=== PATIENT | female | born 2000 | race Caucasian/White ===

== ENCOUNTER 2018-06-16 14:56 | Day surgery (SDC) | payer BC, OTHER ==
[2018-06-16 15:33] VITALS: BMI 26.7
--- NOTE | 2018-06-17 02:44 | SS ---
DATE OF ADMISSION: 06/16/2018 DATE OF DISCHARGE: 06/16/2018 REGULAR PHYSICIAN: Casa Nava DO, MS EVALUATING PHYSICIAN: Rao Rodriguez MD CHIEF COMPLAINT: Abdominal pain. HISTORY OF PRESENT ILLNESS: Ms. Ivey is a 18-year-old white G2, P0, AB1 with an estimated date of confinement of 09/02/2018, who presents complaining of intermittent cramping throughout the morning that she stated increased. She called Dr. Nava's office and was told to hydrate and rest at home. The patient states she became concerned about cramping and had a bowel movement just before she left for the hospital and she states that her symptoms are now completely resolved. She denies ruptured membranes or vaginal bleeding. Her care has been with Dr. Nava and has been without complications. PAST MEDICAL HISTORY: None. PAST SURGICAL HISTORY: D and C, tonsillectomy, and adenoidectomy. CURRENT MEDICATIONS: vitamins and folate. ALLERGIES: CEFADYL AND HYDROCODONE. SOCIAL HISTORY: Denies tobacco or alcohol use. She denies illicit drug use. FAMILY HISTORY: Unremarkable. REVIEW OF SYSTEMS: Denies nausea, vomiting, fever, chills, vaginal bleeding or ruptured membranes. PHYSICAL EXAMINATION: VITAL SIGNS: In triage, her vital signs are stable. She is afebrile. GENERAL: She is a pleasant young woman, in no acute distress, feeling much better now. ABDOMEN: Soft and nontender. There is no guarding or rebound. It is nondistended. HEART: heart rate tracing is reassuring. There are no decelerations. Spontaneous accelerations are seen. No uterine contractions are noted. ASSESSMENT: 1. 28 and 6/7th week intrauterine . 2. Suspect constipation, now resolved with bowel movement. PLAN: The patient will be discharged to home. Signs and symptoms of labor were discussed with her in detail. She was told should she have further abdominal pain, she should return for further evaluation. She understands her discharge instructions and sent home in good condition. Job ID: [id number]
== END 2018-06-16 16:20 | disposition home health service (06) ==
LOC: L&D/OP 14:56
PROVIDERS: ATTEND Obstetrics & Gynecology
DX: O99.89 Other specified diseases and conditions complicating pregnancy, childbirth and the puerperium (principal); R10.9 Unspecified abdominal pain; Z90.89 Acquired absence of other organs; Z88.1 Allergy status to other antibiotic agents; Z88.5 Allergy status to narcotic agent; Z98.890 Other specified postprocedural states
CPT/HCPCS: 99282

== ENCOUNTER 2018-08-12 15:50 | Day surgery (SDC) | payer BC, OTHER ==
[2018-08-12 16:54] VITALS: BMI 28.1
--- NOTE | 2018-08-13 07:56 | SS ---
DATE OF ADMISSION: 08/12/2018 DATE OF DISCHARGE: 08/12/2018 LABOR AND DELIVERY TRIAGE NOTE REGULAR PHYSICIAN: Casa Nava DO EVALUATING PHYSICIAN: Rao Rodriguez MD CHIEF COMPLAINT: Contractions at home. HISTORY OF PRESENT ILLNESS: Ms. Bradshaw is a 18-year-old, G2, P0, AB1 with an estimated date of confinement of 09/02/2018, who presents complaining of contractions since 11 this morning. She denies ruptured membranes or vaginal bleeding. Her care has been with Dr. Nava without complications. PAST OBSTETRICAL HISTORY: Includes a missed AB requiring D and C. PAST MEDICAL HISTORY: None. PAST SURGICAL HISTORY: Tonsillectomy and adenoidectomy as well as D and C noted above. CURRENT MEDICATIONS: vitamins. ALLERGIES: NO KNOWN ALLERGIES. SOCIAL HISTORY: Denies tobacco or alcohol use. FAMILY HISTORY: Unremarkable. REVIEW OF SYSTEMS: Denies nausea, vomiting, fever, chills, vaginal bleeding, or ruptured membranes. PHYSICAL EXAMINATION: VITAL SIGNS: In triage, her vital signs are stable and she is afebrile. GENERAL: She is pleasant, in no acute distress. ABDOMEN: Soft, nontender, and gravid. PELVIC: By the triage nurse shows the cervix to be 1 cm dilated, 70% effaced with the vertex at the -1. heart rate tracing is stable, only an occasional irregular contraction is seen. ASSESSMENT: 1. Thirty-seven week intrauterine . 2. No evidence of active labor at this time. PLAN: The nature of labor was discussed with the patient and her in detail. Her is a non-commissioned soldier at [employer], [place] and he is here on leave. She was told to return should she experience regular contractions, ruptured membranes, or vaginal bleeding. She voiced understanding of these labor precautions and was sent home in good condition. Job ID: [id number]
== END 2018-08-12 17:27 | disposition home health service (06) ==
LOC: L&D/OP 15:50
PROVIDERS: ATTEND Obstetrics & Gynecology
DX: O47.1 False labor at or after 37 completed weeks of gestation (principal); Z3A.37 37 weeks gestation of pregnancy; Z79.899 Other long term (current) drug therapy; Z88.1 Allergy status to other antibiotic agents; Z88.5 Allergy status to narcotic agent; Z91.040 Latex allergy status
CPT/HCPCS: 99282

== ENCOUNTER 2018-08-24 13:08 | Inpatient (IN) | payer BC, OTHER ==
[~2018-08-24 13:08] MED LIST: Bupivacaine 0.25% HCL 30 ML VIAL ONE; Sodium Chloride 0.9% (PF) 10 ML VIAL ONE
[2018-08-24 13:57] VITALS: BMI 28.5
[2018-08-24] MEDS ORDERED: Ibuprofen 800 MG TAB PO PRN (14:00)
[2018-08-24] MEDS ORDERED: Acetaminophen 500 MG TAB PO PRN (14:18)
[2018-08-24] MEDS ORDERED: NS / Oxytocin 40 units/1000ml 1,000 ML IV PRN (14:18)
[2018-08-24] MEDS ORDERED: Promethazine HCl 25 MG/ML VIAL IM PRN ×2 (14:18→18:29)
[2018-08-24] MEDS ORDERED: Lidocaine 1% (PF) 30 ML VIAL SC PRN (14:18)
[2018-08-24] MEDS ORDERED: Ondansetron PF 4 MG/2 ML Vial IVP PRN ×2 (14:18→18:29)
--- NOTE | 2018-08-24 14:27 | PDOC.LDHP ---
Labor and Delivery H&P Chief complaint: loss of fluid HPI: Pt is a 18yo who reports LOF last night and presents to L and D. GBS negative. Good FM. Rare ctx. Current gestational age (weeks): 38 Due date: 09/03/18 Dating criteria: first trimester ultrasound Grav: 2 Para: 0 OB History Details: transfer of care at 25 weeks Current complications: none Abnormal US findings: No Past Medical History: none Current medications: pre- vitamins Previous surgical history: dilation and curettage Allergies/Adverse Reactions: Allergies Allergy/AdvReac Type Severity Reaction Status Date / Time cefprozil Allergy Verified 08/24/18 13:53 hydrocodone Allergy Verified 08/24/18 13:53 latex Allergy Verified 08/24/18 13:53 Social history: none - Physical Exam Vital signs reviewed and normal: yes General: NAD Lungs: nonlabored breathing Abdomen: gravid Extremeties: no edema FHT: category 1 - Vaginal Exam cm dilated: 1 - OB Labs Blood type: O RH: positive Antibody Screen: negative HIV: negative RPR: negative HEPSAg: negative 1 hour GCT: negative (112) Rubella: immune - Assessment L&D Assessment: term rupture in membranes - Plan Plan: admit to L&D, cervical ripening, labor augmentation if indicated, informed consent obtained, anesthesia consult for pain management -: A/P: Term PROM @ 38+ weeks. Plan for cytotec for IOL, FHT reassuring.
[2018-08-24] MEDS ORDERED: Misoprostol 100 MCG TAB PO SCH (14:30)
[2018-08-24] MEDS ORDERED: NS w/ Oxytocin 10 units 500 ML IV SCH ×2 (14:30)
[2018-08-24] MEDS ORDERED: Butorphanol Tartrate 1 MG/ML VIAL ONE (15:58)
[2018-08-24] MEDS: Butorphanol Tartrate 1 MG/ML VIAL SLOW IVP PRN ×2 (16:00→17:51)
[2018-08-24 16:03] LABS: Hemoglobin 12.7 g/dL (12.0-16.0); Mean Corpuscular HGB CONC 34.6 g/dL (32.0-36.0); Mean Corpuscular Hemoglobin 32.4 pg (25.0-35.0); Mean Corpuscular Volume 93.7 fL (78.0-98.0); Mean Platelet Volume 10.5 fL (7.4-10.4); Platelet Count 161 thou/uL (130-400); RBC Distribution Width 12.1 % (11.5-14.5); Red Blood Cell (RBC) Count 3.91 mill/uL (4.00-5.20); White Blood Cell (WBC) Count 9.9 thou/uL (4.8-10.8)
[2018-08-24 16:50] LABS: HBSAg Index 0.39 S/CO (0-0.99); Hep B Surf Ag Non-Reactive S/CO (NonReactive); Syphilis Antibody Nonreactive (Nonreactive); Syphilis Antibody Index 0.03 S/CO (<1.00 Non-Reactive)
[2018-08-24] MEDS ORDERED: Fentanyl 4 mcg/Bup 0.1% Cadd 100 ML ONE (17:48)
[2018-08-24] MEDS: Lactated Ringer's 1,000 ML IV SCH ×2 (17:57→22:03)
[2018-08-24] MEDS ORDERED: Acetaminophen 325 MG TAB PO PRN (18:29)
[2018-08-24] MEDS ORDERED: ePHEDrine/0.9% NaCl/PF SYRINGE 50 mg/10 ml SLOW IVP PRN (18:29)
[2018-08-24] MEDS ORDERED: Eucerin (Mineral Oil/Petrolatum,White) 30 gm Jar TOP PRN (18:29)
[2018-08-24] MEDS ORDERED: Naloxone HCl 0.4 mg/ml Vial IVP PRN ×2 (18:29)
[2018-08-24] MEDS ORDERED: Lactated Ringer's 500 ML IV PRN (18:29)
[2018-08-24] MEDS ORDERED: diphenhydrAMINE 50 MG/ML VIAL IVP PRN (18:29)
[2018-08-24] MEDS ORDERED: Communication Order-Pharmacy FS SCH (18:30)
[2018-08-24] MEDS ORDERED: Fentanyl 4 mcg/Bupivacaine 0.1% Cassette 100 ML EPIDURAL SCH (18:30)
[2018-08-24] MEDS ORDERED: Lidocaine 1% (PF) 30 ML VIAL ONE (23:54)
--- NOTE | 2018-08-25 01:47 | OP ---
DATE OF PROCEDURE: 08/25/2018 The patient delivered a female on 08/25/2018 at 0036 hours by an uncomplicated term spontaneous vaginal delivery at 38 weeks and 5 days. Apgars were 8 and 9. weight unavailable at the time of dictation. Delivery was complicated by an elevated temperature of 100.7 just prior to delivery by about 40 minutes. Placenta delivered spontaneously followed by a Pitocin infusion. There were no lacerations. Quantitative blood loss was 66. Dr. Vargas is the delivering physician. There were no lacerations. Counts were correct. Mother and baby were stable in the room in the immediate . Job ID: [id number]
[2018-08-25] MEDS ORDERED: Lanolin Ointment 7 GM TUBE TOP PRN (03:46)
[2018-08-25] MEDS ORDERED: NS / Oxytocin 40 units/1000ml 1,000 ML IV SCH (03:46)
[2018-08-25] MEDS ORDERED: Preparation H Ointment 28 GM TUBE PR PRN (03:46)
[2018-08-25] MEDS ORDERED: Bisacodyl 10 MG SUPP PR PRN (03:46)
[2018-08-25] MEDS ORDERED: diphenhydrAMINE 25 MG CAP PO PRN (03:46)
[2018-08-25] MEDS ORDERED: Milk Of Magnesia 30 ML UDCUP PO PRN (03:46)
[2018-08-25] MEDS ORDERED: Ondansetron PF 4 MG/2 ML Vial IVP PRN (03:46)
[2018-08-25] MEDS ORDERED: Benzocaine-Menthol 82.5 ML CAN TOP PRN (03:46)
[2018-08-25] MEDS: Ibuprofen 800 MG TAB PO SCH ×3 (05:04→21:25)
[2018-08-25] MEDS: Ferrous Sulfate 325 MG TAB PO SCH ×2 (07:56→17:00)
[2018-08-25] MEDS: Docusate Calcium (SURFAK) 240 MG CAP PO SCH ×2 (08:55→21:25)
[2018-08-25] MEDS: Prenatal Vitamin 1 TAB PO SCH (08:55)
[2018-08-25] MEDS ORDERED: Adacel (T-DAP) 0.5 ML SYRINGE IM ONE (09:00)
--- NOTE | 2018-08-25 10:41 | PDOC.PP ---
Post Progress Note Post Day #: 0 Subjective: doing well, breast feeding min lochia PO intake tolerated: yes Flatus: yes Ambulation: yes Vital Signs (12 hours) Temp Pulse Resp BP Pulse Ox 08/25/18 08:25 98.4 F 69 20 115/65 97 08/25/18 05:00 98.3 F 80 18 127/74 97 08/25/18 03:57 98.3 F 76 20 132/75 97 Weight Weight 161 lb - Physical Examination General: NAD Respiratory: non-labored breathing Fundus firm & at: at umb Neurological: no gross focal deficits Psychiatric: A&Ox3, normal affect Result Diagrams: 08/24/18 15:23 Additional Labs: Post Labs Blood Type O POSITIVE 08/24/18 15:36 Hep Bs Antigen Non-Reactive S/CO (NonReactive) 08/24/18 15:23 (1) Vaginal delivery Code(s): O80 - ENCOUNTER FOR FULL-TERM UNCOMPLICATED DELIVERY Status: Acute - Assessment/Plan A/P: PPD0 doing well sp , plan for continued PP care.
[2018-08-26] MEDS: Ibuprofen 800 MG TAB PO SCH ×3 (06:26→21:44)
[2018-08-26 06:38] LABS: Hemoglobin 10.3 g/dL (12.0-16.0); Mean Corpuscular HGB CONC 32.9 g/dL (32.0-36.0); Mean Corpuscular Hemoglobin 31.6 pg (25.0-35.0); Mean Platelet Volume 9.9 fL (7.4-10.4); Platelet Count 136 thou/uL (130-400); RBC Distribution Width 12.3 % (11.5-14.5); Red Blood Cell (RBC) Count 3.25 mill/uL (4.00-5.20); White Blood Cell (WBC) Count 10.2 thou/uL (4.8-10.8)
--- NOTE | 2018-08-26 08:26 | PDOC.PP ---
Post Progress Note Post Day #: 1 Subjective: no concerns PO intake tolerated: yes Flatus: yes Ambulation: yes Vital Signs (12 hours) Temp Pulse Resp BP 08/26/18 05:00 97.7 F 70 18 116/72 08/26/18 00:10 98.0 F 66 18 124/72 Weight Weight 161 lb - Physical Examination General: NAD Respiratory: non-labored breathing Fundus firm & at: below umb Skin: no rash Psychiatric: A&Ox3, normal affect Result Diagrams: 08/26/18 05:56 Additional Labs: Post Labs Blood Type O POSITIVE 08/24/18 15:36 Hep Bs Antigen Non-Reactive S/CO (NonReactive) 08/24/18 15:23 (1) Vaginal delivery Code(s): O80 - ENCOUNTER FOR FULL-TERM UNCOMPLICATED DELIVERY Status: Acute - Assessment/Plan A/P: PPD 1 sp , will continue to monitor PP (had isolated fever at delivery) . Plan for DC tomorrow.
[2018-08-26] MEDS: Ferrous Sulfate 325 MG TAB PO SCH ×2 (10:06→15:23)
[2018-08-26] MEDS: Prenatal Vitamin 1 TAB PO SCH (10:38)
[2018-08-26] MEDS: Docusate Calcium (SURFAK) 240 MG CAP PO SCH ×2 (10:38→21:45)
[2018-08-27] MEDS: Ibuprofen 800 MG TAB PO SCH (05:26)
--- NOTE | 2018-08-27 07:56 | PDOC.PP ---
Post Progress Note Post Day #: 2 Subjective: doing well, good milk production, no fever/chills PO intake tolerated: yes Flatus: yes Ambulation: yes Vital Signs (12 hours) Temp Pulse Resp BP Pulse Ox 08/26/18 20:50 97 08/26/18 20:20 98.3 F 63 18 118/76 97 Weight Weight 161 lb - Physical Examination General: NAD Respiratory: non-labored breathing Neurological: no gross focal deficits Psychiatric: A&Ox3, normal affect Result Diagrams: 08/26/18 05:56 Additional Labs: Post Labs Blood Type O POSITIVE 08/24/18 15:36 Hep Bs Antigen Non-Reactive S/CO (NonReactive) 08/24/18 15:23 (1) Vaginal delivery Code(s): O80 - ENCOUNTER FOR FULL-TERM UNCOMPLICATED DELIVERY Status: Acute - Assessment/Plan PPD2 doing well, DC home today.
[2018-08-27] MEDS: Ferrous Sulfate 325 MG TAB PO SCH (08:27)
[2018-08-27 08:36] VITALS: BP 122/80; TEMP 99
[2018-08-27] MEDS: Prenatal Vitamin 1 TAB PO SCH (08:36)
[2018-08-27] MEDS: Docusate Calcium (SURFAK) 240 MG CAP PO SCH (08:36)
== END 2018-08-27 13:15 | disposition home or self-care (01) | DRG 806 ==
LOC: L&D/OP 13:08 → L&D 14:09 → 3SW 08-25 04:04
PROVIDERS: ADMIT Obstetrics & Gynecology; ATTEND Obstetrics & Gynecology
PROC: 10E0XZZ Delivery of Products of Conception, External Approach (ICD-10-PCS; principal; 2018-08-25)
PROC: 3E0P7VZ Introduction of Hormone into Female Reproductive, Via Natural or Artificial Opening (ICD-10-PCS; 2018-08-25)
DX: O42.92 Full-term premature rupture of membranes, unspecified as to length of time between rupture and onset of labor (principal); O75.2 Pyrexia during labor, not elsewhere classified; Z37.0 Single live birth; Z3A.38 38 weeks gestation of pregnancy
CPT/HCPCS: 36415; 36416; 51702; 85027; 86780; 86850; 86900; 86901; 87340; 99285; J0595; J2001; J2310; J2405; J2550; S0020